=== PATIENT | female | born 1950 | race Hispanic/Latino ===

== ENCOUNTER 2017-05-11 15:01 | Emergency (ER) | payer OTHER ==
[~2017-05-11] VITALS: Ht 142.2 cm; Wt 57.2 kg
[~2017-05-11 15:01] MED LIST: CIPROFLOXACN500 MG PO; LEVEMIR1000 UNITS SC; NO MEDS; PYRIDIUM200 MG PO; TRAMADOL HCL50 MG OR
[2017-05-11] MEDS ORDERED: EC-NAPROSYN500 MG PO (15:40)
[2017-05-11] MEDS ORDERED: TRAMADOL HYDROC50 MG PO (17:11)
[2017-05-11 17:20] VITALS: BP 149/74
== END 2017-05-11 17:20 | disposition home or self-care (01) | DRG 556 ==
LOC: ED 15:01
DX: M79.671 Pain in right foot (principal); M25.561 Pain in right knee; M79.661 Pain in right lower leg; W19.XXXA Unspecified fall, initial encounter; Y93.89 Activity, other specified; Y92.89 Other specified places as the place of occurrence of the external cause

== ENCOUNTER 2017-05-26 16:08 | Emergency (ER) | payer SELFPAY ==
[~2017-05-26] VITALS: Ht 142.2 cm; Wt 58.0 kg
[~2017-05-26 16:08] MED LIST changes: +EC-NAPROSYN500 MG PO; +TRAMADOL HYDROC50 MG PO
[2017-05-26] MEDS ORDERED: NAPROSYN500 MG PO (18:41)
[2017-05-26 18:46] VITALS: BP 140/89
== END 2017-05-26 18:45 | disposition home or self-care (01) | DRG 556 ==
LOC: ED 16:08
DX: M79.604 Pain in right leg (principal); Z91.81 History of falling

== ENCOUNTER 2022-05-20 19:51 | Observation (INO) | payer MEDICARE ==
[~2022-05-20] VITALS: Ht 142.2 cm; Wt 85.0 kg
[2022-05-20] VITALS (14 sets, daily range): BP systolic 154–197; BP diastolic 86–101
[~2022-05-20 19:51] MED LIST changes: +NAPROSYN500 MG PO
[2022-05-20 21:07] LABS: HEMATOCRIT 37.4 % (37.0-47.0); HEMOGLOBIN 13.1 g/dl (12.0-16.0); IMMATURE GRANULOCYTES 0.2 % (0.0-5.0); MEAN CELL VOLUME 95.2 fL CALC (80.0-100.0); MEAN CORPUSCULAR HGB 33.3 pG CALC (26.0-32.0); NEUT# 2.58 thou/uL (2.00-7.15); RED BLOOD COUNT 3.93 mill/uL (4.20-5.60); RED CELL DISTRI WIDTH 11.5 % (11.5-15.5)
[2022-05-20 21:19] LABS: PROTHROMBIN TIME 10.4 SECONDS (9.0-12.5)
[2022-05-20 21:20] LABS: ALKALINE PHOSPHATASE 114 u/l (38-126); BUN 17 mg/dL (8-23); BUN/CREATININE RATIO 35 (12-20 (CALC)); CHLORIDE 107 mmol/l (95-108); CREATININE 0.5 mg/dL (0.5-1.0); GFR FOR AFR.AMER. > 60 ML/MIN (>=60 (CALC)); GFR OTHER RACES > 60 ML/MIN (>=60 (CALC)); LIPASE 77 u/l (23-300); POTASSIUM 3.6 mmol/l (3.5-5.1); SGOT/AST 30 u/l (9-36); SODIUM 138 mmol/l (137-146); TOTAL PROTEIN 7.1 g/dL (6.3-8.2)
[2022-05-20 21:22] LABS: ANION GAP 14 (6-22 (CALC)); BILIRUBIN, TOTAL 0.5 mg/dL (0.0-1.4); CARBON DIOXIDE 21 mmol/l (22-30)
[2022-05-21] VITALS (17 sets, daily range): BP systolic 153–190; BP diastolic 78–103
[2022-05-21 09:45] LABS: ANION GAP 12 (6-22 (CALC)); BUN 12 mg/dL (8-23); BUN/CREATININE RATIO 27 (12-20 (CALC)); CARBON DIOXIDE 25 mmol/l (22-30); CHLORIDE 107 mmol/l (95-108); CREATININE 0.4 mg/dL (0.5-1.0); GFR FOR AFR.AMER. > 60 ML/MIN (>=60 (CALC)); GFR OTHER RACES > 60 ML/MIN (>=60 (CALC)); SODIUM 140 mmol/l (137-146)
== END 2022-05-21 16:10 | disposition home or self-care (01) ==
LOC: ED 19:51 → ED-I 23:40 → ED 05-21 00:49 → ICU 05-21 00:49
PROVIDERS: Nurse Practitioner; ADMIT Internal Medicine; ATTEND Internal Medicine
DX: R07.89 Other chest pain (principal); E11.9 Type 2 diabetes mellitus without complications; I10 Essential (primary) hypertension; M54.50 Low back pain, unspecified; G89.29 Other chronic pain; T46.4X6A Underdosing of angiotensin-converting-enzyme inhibitors, initial encounter; Z91.128 Patient's intentional underdosing of medication regimen for other reason; Z79.1 Long term (current) use of non-steroidal anti-inflammatories (NSAID); Z20.822 Contact with and (suspected) exposure to COVID-19